=== PATIENT | male | born 1940 | race Caucasian/White ===

== ENCOUNTER 2025-05-07 10:23 | Emergency (ER) | payer OTHER ==
[2025-05-07 10:48] VITALS: RESP 16; TEMP 97.9; BMI 30.7
[2025-05-07 11:58] LABS: ABSOLUTE IMMATURE GRANULOCYTES 0.03 x10^3/uL (0.0-0.031); BASOPHILS # 0.05 x10^3/uL (0.01-0.08); EOSINOPHIL % 2.1 % (0.8-7.0); EOSINOPHILS # 0.17 x10^3/uL (0.04-0.54); HEMATOCRIT 39.9 % (40.1-51.0); HEMOGLOBIN 12.9 g/dL (13.7-17.5); MCHC 32.3 g/dl (32.3-36.5); MEAN CELL VOLUME 88.7 fl (79.0-92.2); MEAN PLT VOLUME 12.2 fl (9.4-12.4); MONOCYTE # 0.55 x10^3/uL (0.30-0.82); MONOCYTE % 6.8 % (5.3-12.2); PLATELET COUNT 178 x10^3/uL (163-337); RDW 13.8 % (12.6-16.6)
[2025-05-07 12:03] LABS: INR 0.96 (0.83-1.09); PROTHROMBIN TIME (PATIENT) 10.6 SEC (9.7-13.0)
[2025-05-07 12:06] LABS: ACTIVATED PTT 28.7 SECONDS (25.2-36.5)
[2025-05-07 12:12] LABS: POTASSIUM 4.7 mmol/L (3.5-5.1)
[2025-05-07 12:17] LABS: ALBUMIN 3.8 g/dl (3.4-5.0); BLOOD UREA NITROGEN 19.6 mg/dL (7-18); CALCIUM 9.3 mg/dL (8.5-10.1)
[2025-05-07 12:21] LABS: BILIRUBIN,TOTAL 0.6 mg/dL (0.2-1); MAGNESIUM 2.1 mg/dL (1.8-2.4); TOT PROT 7.4 g/dl (6.4-8.2)
[2025-05-07 12:24] LABS: PHOSPHOROUS 2.8 mg/dL (2.5-4.9)
[2025-05-07 13:14] LABS: HIV INTERPRETATION NEGATIVE (NEGATIVE)
[2025-05-07 13:16] LABS: HCV DIAGNOSTIC IN-HOUSE W/RFLX NON-REACTIVE (NONREACTIVE)
[2025-05-07] MEDS ORDERED: ACETAMINOPHEN INJECTION 100 ML ONE (13:17)
[2025-05-07] MEDS ORDERED: FAMOTIDINE 20 MG/50 ML IVPB 20 MG/50 ML MG IVPB ONE (13:17)
[2025-05-07] MEDS: ACETAMINOPHEN 1000 MG/100 ML BAG IVPB ONE (13:22)
[2025-05-07] MEDS: FAMOTIDINE 20 MG/50 ML IVPB 20 MG/50 ML MG IVPB ONE (13:23)
[2025-05-07] MEDS: LACTATED RINGERS SOLUTION 1000 ML INFUS.BAG IV ONE (14:48)
[2025-05-07 16:03] VITALS: BP 141/73; PULSE 46
== END 2025-05-07 17:41 | disposition home or self-care (01) ==
LOC: JER 10:23
PROC: 3E033GC Introduction of Other Therapeutic Substance into Peripheral Vein, Percutaneous Approach (ICD-10-PCS; principal; 2025-05-07)
PROC: 3E033NZ Introduction of Analgesics, Hypnotics, Sedatives into Peripheral Vein, Percutaneous Approach (ICD-10-PCS; 2025-05-07)
DX: R10.10 Upper abdominal pain, unspecified (principal); R20.0 Anesthesia of skin; R20.2 Paresthesia of skin; R07.89 Other chest pain
CPT/HCPCS: 0241U-QW; 36415; 70496-TC; 70498-TC; 71045-TC-FY; 71275-TC; 74174-TC; 76705-TC; 80053; 82550; 83605; 83690; 83735; 83880; 84100; 84484; 85025; 85610; 85730; 86803; 87389; 93005; 93010; 96365; 96375; 99285-25; Q9967